=== PATIENT | female | born 1975 | race American Indian/Alaskan Native ===

== ENCOUNTER 2016-07-19 10:11 | Outpatient (CLI) | payer OTHER ==
--- NOTE | 2016-07-19 13:55 | Mammography Report ---
Screening mammogram: Baseline study. Routine views demonstrates a heterogeneous asymmetrically distributed fibroglandular pattern. There is no focal mass nor architectural distortion. There is a grouping of indeterminate left breast calcifications identified in the superior breast. Some scattered benign-appearing calcifications are noted on the right. CAD used. Impression: Indeterminate left calcifications. Recommendation: Magnification views of the left breast calcifications. BI-RADS CATEGORY: 0 = Needs additional imaging evaluation ACR BI-RADS MAMMOGRAPHIC CODES: 0 = Needs additional imaging evaluation; 1 = Negative; 2 = Benign; 3 = Probably benign; 4 = Suspicious; 5 = Malignant; 6 = Known biopsy-proven malignancy COMMENT: 1. Dense breast tissue, i.e., adenosis, fibrocystic changes, etc., may obscure an underlying neoplasm. 2. Approximately 10% of cancers are not detected with mammography. 3. A negative mammography report should not delay biopsy if a clinically suspicious mass is present.
== END 2016-07-19 10:12 | disposition home or self-care (01) ==
LOC: MAMMO 10:11
PROVIDERS: ATTEND Family Medicine
DX: Z12.31 Encounter for screening mammogram for malignant neoplasm of breast (principal); E55.9 Vitamin D deficiency, unspecified
CPT/HCPCS: 77067; G0202

== ENCOUNTER 2017-05-08 14:44 | Outpatient (CLI) | payer OTHER ==
--- NOTE | 2017-05-08 16:12 | Mammography Report ---
LEFT DIGITAL DIAGNOSTIC MAMMOGRAM : 05/08/17 14:44:00 CLINICAL: Recall for calcifications. COMPARISON:07/19/16 FINDINGS:ML and ML, MLO and CC magnification views were performed. 2 groups of calcifications are identified. The larger group is more anterior and superior and the calcifications are identified within lateral skin. A smaller group also appears to be within the inferior scan a lateral view. IMPRESSION: Benign dermal calcifications. BI-RADS CATEGORY: 2 - - Benign RECOMMENDATION: Routine mammographic screening. ACR BI-RADS MAMMOGRAPHIC CODES: 0 = Needs additional imaging evaluation; 1 = Negative; 2 = Benign; 3 = Probably benign; 4 = Suspicious; 5 = Malignant; 6 = Known biopsy-proven malignancy COMMENT: 1. Dense breast tissue, i.e., adenosis, fibrocystic changes, etc., may obscure an underlying neoplasm. 2. Approximately 10% of cancers are not detected with mammography. 3. A negative mammography report should not delay biopsy if a clinically suspicious mass is present. COMMENT: Patient follow-up letters are generated by our [employer] application.
== END 2017-05-08 14:45 | disposition home or self-care (01) ==
LOC: SPVWC 14:44
PROVIDERS: ATTEND Family Medicine
DX: R92.1 Mammographic calcification found on diagnostic imaging of breast (principal); R92.8 Other abnormal and inconclusive findings on diagnostic imaging of breast